=== PATIENT | male | born 1990 | race African-American/Black ===

== ENCOUNTER 2021-01-15 19:47 | Emergency (ER) | payer SELFPAY ==
[~2021-01-15] VITALS: Ht 190.5 cm; Wt 87.0 kg
[2021-01-15 20:41] VITALS: BP 146/81
[2021-01-15] MEDS ORDERED: ACETAMINOPHEN 325MG TABLET PO ONE (22:30)
[2021-01-15] MEDS ORDERED: TOPUD PO (22:51)
== END 2021-01-15 23:21 | disposition home or self-care (01) ==
LOC: ER 19:47
DX: S60.222A Contusion of left hand, initial encounter (principal); S60.221A Contusion of right hand, initial encounter; J45.909 Unspecified asthma, uncomplicated; M19.90 Unspecified osteoarthritis, unspecified site; G40.909 Epilepsy, unspecified, not intractable, without status epilepticus; Z88.0 Allergy status to penicillin; V00.131A Fall from skateboard, initial encounter; Y93.51 Activity, roller skating (inline) and skateboarding; Y92.488 Other paved roadways as the place of occurrence of the external cause; Y99.8 Other external cause status
CPT/HCPCS: 73130; 99283

== ENCOUNTER 2021-09-06 18:20 | Emergency (ER) | payer MEDICAID ==
[~2021-09-06] VITALS: Ht 188 cm; Wt 87.0 kg
[~2021-09-06 18:20] MED LIST: TOPUD PO
[2021-09-06 18:33] VITALS: BP 132/94
== END 2021-09-06 20:19 | disposition left against medical advice (07) ==
LOC: ER 18:20
DX: Z53.21 Procedure and treatment not carried out due to patient leaving prior to being seen by health care provider (principal)

== ENCOUNTER 2021-09-06 22:06 | Emergency (ER) | payer MEDICAID ==
[~2021-09-06] VITALS: Ht 188 cm; Wt 86.0 kg
[2021-09-06 23:41] VITALS: BP 146/91
== END 2021-09-07 01:10 | disposition left against medical advice (07) ==
LOC: ER 22:06
DX: Z53.21 Procedure and treatment not carried out due to patient leaving prior to being seen by health care provider (principal)

== ENCOUNTER 2021-09-25 13:25 | Emergency (ER) | payer MEDICAID ==
[~2021-09-25] VITALS: Ht 185.4 cm; Wt 77.0 kg
[2021-09-25] MEDS ORDERED: IBUPROFEN 800MG TABLET PO ONE (14:15)
[2021-09-25 15:03] VITALS: BP 126/75
== END 2021-09-25 15:30 | disposition home or self-care (01) ==
LOC: ER 13:25
DX: S80.212A Abrasion, left knee, initial encounter (principal); M79.601 Pain in right arm; M25.532 Pain in left wrist; V03.19XA Pedestrian with other conveyance injured in collision with car, pick-up truck or van in traffic accident, initial encounter; Y93.89 Activity, other specified; Y92.89 Other specified places as the place of occurrence of the external cause; Y99.8 Other external cause status; J45.909 Unspecified asthma, uncomplicated; Z88.0 Allergy status to penicillin
CPT/HCPCS: 71045; 73060; 73110; 73560; 99284

== ENCOUNTER 2021-11-16 09:27 | Emergency (ER) | payer MEDICAID ==
[~2021-11-16] VITALS: Ht 188 cm; Wt 86.0 kg
[2021-11-16] MEDS ORDERED: IBUPROFEN 600MG TABLET PO ONE (10:15)
[2021-11-16] MEDS ORDERED: NAPR-681 MT (12:16)
[2021-11-16] MEDS ORDERED: IBUPROFEN 600MG TABLET PO NR (12:30)
[2021-11-16 12:38] VITALS: BP 135/87
== END 2021-11-16 12:44 | disposition home or self-care (01) ==
LOC: ER 09:27
DX: M25.562 Pain in left knee (principal); M25.461 Effusion, right knee; Z87.828 Personal history of other (healed) physical injury and trauma
CPT/HCPCS: 29505; 73562; 99283

== ENCOUNTER 2021-11-24 12:25 | Emergency (ER) | payer MEDICAID ==
[~2021-11-24] VITALS: Ht 180.3 cm; Wt 73.0 kg
[~2021-11-24 12:25] MED LIST changes: +NAPR-681 MT
[2021-11-24] MEDS ORDERED: OLANZAPINE 10MG TABLET PO STA (12:38)
[2021-11-24 13:01] LABS: BASOPHILS % 1.4 % (0.0-2.0); EOSINOPHILS % 2.7 % (0.0-5.0); HEMATOCRIT. 37.7 % (42.0-52.0); HEMOGLOBIN. 12.8 g/dL (14.0-18.0); LYMPHOCYTES % 28.7 % (20.0-50.0); MEAN CORPUSCULAR HEMOGLOBIN 29.7 pg (28.0-32.0); MEAN CORPUSCULAR VOLUME 87.3 fL (80.0-94.0); MEAN PLATELET VOLUME 7.3 fl (7.4-10.4); MONOCYTES % 6.8 % (2.0-8.0); NEUTROPHILS % 60.4 % (40.0-76.0); PLATELET 293 x1000/uL (130-400); RED BLOOD CELL COUNT 4.32 mill/uL (4.7-6.1); RED CELL DISTRIBUTION WIDTH 15.4 % (11.6-14.6)
[2021-11-24 13:08] LABS: CHLORIDE 109 mEq/L (98-107)
[2021-11-24 13:15] LABS: ETHANOL BLOOD < 10 mg/dL
[2021-11-24 13:30] LABS: CLARITY URINE CLEAR (CLEAR); COLOR URINE YELLOW (YELLOW); KETONES URINE NEGATIVE (NEGATIVE); LEUKOCYTE ESTERASE URINE NEGATIVE (NEGATIVE); NITRITE URINE NEGATIVE (NEGATIVE); OCCULT BLOOD URINE NEGATIVE (NEGATIVE); PROTEIN URINE NEGATIVE (NEGATIVE); SPECIFIC GRAVITY URINE 1.022 (1.005-1.030)
[2021-11-24 14:03] LABS: *AMPHETAMINES SCREEN URINE PRESUMTIVE POSITIVE (NEGATIVE); *BARBITURATES SCREEN URINE NEGATIVE (NEGATIVE); *BENZODIAZEPINES SCREEN URINE NEGATIVE (NEGATIVE); *COCAINE SCREEN URINE NEGATIVE (NEGATIVE); CANNABINOID URINE SCREEN PRESUMTIVE POSITIVE (NEGATIVE); METHADONE URINE SCREEN NEGATIVE (NEGATIVE); OPIATES URINE SCREEN NEGATIVE (NEGATIVE); PHENCYCLIDINE URINE SCREEN NEGATIVE (NEGATIVE)
[2021-11-25] MEDS: RISPERIDONE 1MG TABLET PO SCH ×2 (09:55→21:59)
[2021-11-26 01:32] VITALS: BP 135/67
== END 2021-11-26 01:48 ==
LOC: ER 12:38
DX: T14.91XA Suicide attempt, initial encounter (principal); X83.8XXA Intentional self-harm by other specified means, initial encounter; F33.2 Major depressive disorder, recurrent severe without psychotic features; R44.0 Auditory hallucinations; Y93.89 Activity, other specified; Y92.488 Other paved roadways as the place of occurrence of the external cause; F15.10 Other stimulant abuse, uncomplicated; F12.10 Cannabis abuse, uncomplicated; Z20.822 Contact with and (suspected) exposure to COVID-19; R03.0 Elevated blood-pressure reading, without diagnosis of hypertension; D64.9 Anemia, unspecified; Z91.14 Patient's other noncompliance with medication regimen; J45.909 Unspecified asthma, uncomplicated; G40.909 Epilepsy, unspecified, not intractable, without status epilepticus; Z87.39 Personal history of other diseases of the musculoskeletal system and connective tissue
CPT/HCPCS: 36415; 80053; 80305; 80307; 80320; 80329; 81003; 85025; 99285; C9803; U0003; U0005; G0480

== ENCOUNTER 2022-01-28 08:41 | Emergency (ER) | payer MEDICAID ==
[~2022-01-28] VITALS: Ht 185.4 cm; Wt 90.0 kg
[2022-01-28] MEDS ORDERED: SERT100T PO (08:52)
[2022-01-28] MEDS ORDERED: OLAN15TA3 PO (08:52)
[2022-01-28 09:44] LABS: BASOPHILS % 0.5 % (0.0-2.0); EOSINOPHILS % 0.2 % (0.0-5.0); HEMATOCRIT. 41.4 % (42.0-52.0); HEMOGLOBIN. 13.8 g/dL (14.0-18.0); LYMPHOCYTES % 14.1 % (20.0-50.0); MEAN CORPUSCULAR HEMOGLOBIN 29.4 pg (28.0-32.0); MEAN CORPUSCULAR VOLUME 88.3 fL (80.0-94.0); MONOCYTES % 6.7 % (2.0-8.0); NEUTROPHILS % 78.5 % (40.0-76.0); PLATELET 283 x1000/uL (130-400); RED BLOOD CELL COUNT 4.69 mill/uL (4.7-6.1); RED CELL DISTRIBUTION WIDTH 14.3 % (11.6-14.6)
[2022-01-28 09:50] LABS: CHLORIDE 103 mEq/L (98-107)
[2022-01-28 09:57] LABS: ETHANOL BLOOD < 10 mg/dL
[2022-01-28 10:50] VITALS: BP 142/66
[2022-01-28 11:30] LABS: *AMPHETAMINES SCREEN URINE NEGATIVE (NEGATIVE); *BARBITURATES SCREEN URINE NEGATIVE (NEGATIVE); *BENZODIAZEPINES SCREEN URINE NEGATIVE (NEGATIVE); *COCAINE SCREEN URINE NEGATIVE (NEGATIVE); CANNABINOID URINE SCREEN PRESUMTIVE POSITIVE (NEGATIVE); METHADONE URINE SCREEN NEGATIVE (NEGATIVE); OPIATES URINE SCREEN NEGATIVE (NEGATIVE); PHENCYCLIDINE URINE SCREEN NEGATIVE (NEGATIVE)
== END 2022-01-28 11:04 | disposition home or self-care (01) ==
LOC: ER 09:02
DX: F20.9 Schizophrenia, unspecified (principal); F31.9 Bipolar disorder, unspecified; G40.909 Epilepsy, unspecified, not intractable, without status epilepticus; F90.9 Attention-deficit hyperactivity disorder, unspecified type; F12.10 Cannabis abuse, uncomplicated; M19.90 Unspecified osteoarthritis, unspecified site; J45.909 Unspecified asthma, uncomplicated; F17.210 Nicotine dependence, cigarettes, uncomplicated; Z71.6 Tobacco abuse counseling; Z88.0 Allergy status to penicillin
CPT/HCPCS: 36415; 80053; 80305; 80307; 80320; 80329; 85025; 99283; 99406; G0480

== ENCOUNTER 2022-03-07 00:33 | Emergency (ER) | payer MEDICAID ==
[~2022-03-07] VITALS: Ht 188 cm; Wt 85.9 kg
[~2022-03-07 00:33] MED LIST changes: +OLAN15TA3 PO; +SERT100T PO
[2022-03-07 00:42] VITALS: BP 172/105
== END 2022-03-07 05:02 | disposition left against medical advice (07) ==
LOC: ER 00:33
DX: Z53.21 Procedure and treatment not carried out due to patient leaving prior to being seen by health care provider (principal)

== ENCOUNTER 2022-03-07 18:48 | Emergency (ER) | payer MEDICAID | END 2022-03-07 19:07 | disposition left against medical advice (07) | LOC: ER 18:48 | DX: Z53.21 Procedure and treatment not carried out due to patient leaving prior to being seen by health care provider (principal) ==

== ENCOUNTER 2022-03-26 17:38 | Emergency (ER) | payer MEDICAID ==
[~2022-03-26] VITALS: Ht 188 cm; Wt 87.0 kg
[2022-03-26] MEDS ORDERED: ACETAMINOPHEN 325MG TABLET PO ONE (18:30)
[2022-03-26] MEDS ORDERED: IBUP-2029 MT (18:43)
[2022-03-26 19:00] VITALS: BP 143/94
== END 2022-03-26 19:01 | disposition home or self-care (01) ==
LOC: ER 17:38
DX: R51.9 Headache, unspecified (principal); R50.9 Fever, unspecified; J45.909 Unspecified asthma, uncomplicated; F31.9 Bipolar disorder, unspecified; F20.9 Schizophrenia, unspecified; F17.290 Nicotine dependence, other tobacco product, uncomplicated; F12.10 Cannabis abuse, uncomplicated; Z88.0 Allergy status to penicillin
CPT/HCPCS: 99282

== ENCOUNTER 2022-04-02 10:53 | Emergency (ER) | payer MEDICAID ==
[~2022-04-02] VITALS: Ht 190.5 cm; Wt 87.0 kg
[~2022-04-02 10:53] MED LIST changes: +IBUP-2029 MT
[2022-04-02 12:03] LABS: BASOPHILS % 0.5 % (0.0-2.0); HEMATOCRIT. 39.1 % (42.0-52.0); HEMOGLOBIN. 12.7 g/dL (14.0-18.0); LYMPHOCYTES % 28.1 % (20.0-50.0); MEAN CORPUSCULAR HEMOGLOBIN 28.7 pg (28.0-32.0); MEAN CORPUSCULAR VOLUME 88.2 fL (80.0-94.0); MEAN PLATELET VOLUME 7.5 fl (7.4-10.4); MONOCYTES % 6.4 % (2.0-8.0); PLATELET 235 x1000/uL (130-400); RED BLOOD CELL COUNT 4.43 mill/uL (4.7-6.1); RED CELL DISTRIBUTION WIDTH 14.8 % (11.6-14.6)
[2022-04-02 12:15] LABS: CHLORIDE 109 mEq/L (98-107)
[2022-04-02 12:22] LABS: ETHANOL BLOOD < 10 mg/dL
[2022-04-02 12:38] LABS: CLARITY URINE CLEAR (CLEAR); COLOR URINE YELLOW (YELLOW); KETONES URINE TRACE (NEGATIVE); LEUKOCYTE ESTERASE URINE NEGATIVE (NEGATIVE); NITRITE URINE NEGATIVE (NEGATIVE); OCCULT BLOOD URINE NEGATIVE (NEGATIVE); PH URINE 5.5 (4.5-8.0); PROTEIN URINE TRACE (NEGATIVE); SPECIFIC GRAVITY URINE 1.042 (1.005-1.030)
[2022-04-02 13:00] LABS: *AMPHETAMINES SCREEN URINE PRESUMTIVE POSITIVE (NEGATIVE); *BARBITURATES SCREEN URINE NEGATIVE (NEGATIVE); *BENZODIAZEPINES SCREEN URINE NEGATIVE (NEGATIVE); *COCAINE SCREEN URINE NEGATIVE (NEGATIVE); CANNABINOID URINE SCREEN PRESUMTIVE POSITIVE (NEGATIVE); METHADONE URINE SCREEN NEGATIVE (NEGATIVE); OPIATES URINE SCREEN NEGATIVE (NEGATIVE); PHENCYCLIDINE URINE SCREEN NEGATIVE (NEGATIVE)
[2022-04-03] MEDS ORDERED: OLANZAPINE 10 MG/VIAL IM ONE (09:45)
[2022-04-03] MEDS ORDERED: MIDAZOLAM HCL 2 MG/2 ML VIAL IM ONE (09:45)
[2022-04-03] MEDS: OLANZAPINE 5MG TABLET PO SCH ×2 (11:30→17:00)
[2022-04-03] MEDS: SERTRALINE HCL 50MG TABLET PO SCH (11:30)
[2022-04-04] MEDS: OLANZAPINE 5MG TABLET PO SCH (09:11)
[2022-04-04] MEDS: SERTRALINE HCL 50MG TABLET PO SCH (09:12)
[2022-04-04 13:11] VITALS: BP 146/82
== END 2022-04-04 13:26 | disposition short-term general hospital (02) ==
LOC: ER 11:51
DX: R45.851 Suicidal ideations (principal); F19.10 Other psychoactive substance abuse, uncomplicated; J45.909 Unspecified asthma, uncomplicated; F31.9 Bipolar disorder, unspecified; F20.9 Schizophrenia, unspecified; F12.10 Cannabis abuse, uncomplicated; Z79.899 Other long term (current) drug therapy; Z88.0 Allergy status to penicillin; Z20.822 Contact with and (suspected) exposure to COVID-19
CPT/HCPCS: 36415; 80053; 80305; 80320; 81003; 85025; 96372; 99285; C9803; U0003; U0005; G0480

== ENCOUNTER 2022-04-07 18:16 | Emergency (ER) | payer MEDICAID ==
[~2022-04-07] VITALS: Ht 182.9 cm; Wt 82.0 kg
[2022-04-07] MEDS ORDERED: OLANZAPINE 5MG TABLET PO SCH (23:15)
[2022-04-07 23:54] LABS: BASOPHILS % 0.7 % (0.0-2.0); EOSINOPHILS % 0.7 % (0.0-5.0); HEMATOCRIT. 40.6 % (42.0-52.0); HEMOGLOBIN. 13.4 g/dL (14.0-18.0); LYMPHOCYTES % 24.3 % (20.0-50.0); MEAN CORPUSCULAR HEMOGLOBIN 28.6 pg (28.0-32.0); MEAN CORPUSCULAR VOLUME 86.6 fL (80.0-94.0); MEAN PLATELET VOLUME 7.1 fl (7.4-10.4); MONOCYTES % 9.1 % (2.0-8.0); NEUTROPHILS % 65.2 % (40.0-76.0); PLATELET 351 x1000/uL (130-400); RED BLOOD CELL COUNT 4.69 mill/uL (4.7-6.1); RED CELL DISTRIBUTION WIDTH 15.6 % (11.6-14.6)
[2022-04-08 00:01] LABS: CHLORIDE 99 mEq/L (98-107)
[2022-04-08 00:10] LABS: ETHANOL BLOOD < 10 mg/dL
[2022-04-08 08:14] LABS: CLARITY URINE CLEAR (CLEAR); COLOR URINE YELLOW (YELLOW); KETONES URINE NEGATIVE (NEGATIVE); LEUKOCYTE ESTERASE URINE NEGATIVE (NEGATIVE); NITRITE URINE NEGATIVE (NEGATIVE); OCCULT BLOOD URINE NEGATIVE (NEGATIVE); PH URINE 7.5 (4.5-8.0); PROTEIN URINE NEGATIVE (NEGATIVE); SPECIFIC GRAVITY URINE 1.026 (1.005-1.030)
[2022-04-08 08:31] LABS: *AMPHETAMINES SCREEN URINE PRESUMTIVE POSITIVE (NEGATIVE); *BARBITURATES SCREEN URINE NEGATIVE (NEGATIVE); *BENZODIAZEPINES SCREEN URINE NEGATIVE (NEGATIVE); *COCAINE SCREEN URINE NEGATIVE (NEGATIVE); CANNABINOID URINE SCREEN PRESUMTIVE POSITIVE (NEGATIVE); METHADONE URINE SCREEN NEGATIVE (NEGATIVE); OPIATES URINE SCREEN NEGATIVE (NEGATIVE); PHENCYCLIDINE URINE SCREEN NEGATIVE (NEGATIVE)
[2022-04-08 08:40] VITALS: BP 156/86
== END 2022-04-08 10:20 | disposition home or self-care (01) ==
LOC: ER 18:16
DX: T43.621A Poisoning by amphetamines, accidental (unintentional), initial encounter (principal); F32.A Depression, unspecified; F20.9 Schizophrenia, unspecified; M19.90 Unspecified osteoarthritis, unspecified site; G40.909 Epilepsy, unspecified, not intractable, without status epilepticus; F12.10 Cannabis abuse, uncomplicated; R45.851 Suicidal ideations; Z59.00 Homelessness unspecified; Z88.0 Allergy status to penicillin; Z20.822 Contact with and (suspected) exposure to COVID-19; Y92.488 Other paved roadways as the place of occurrence of the external cause
CPT/HCPCS: 36415; 80053; 80305; 80307; 80320; 80329; 81003; 85025; 99285; C9803; U0003; U0005; G0480

== ENCOUNTER 2022-04-09 17:56 | Emergency (ER) | payer MEDICAID ==
[~2022-04-09] VITALS: Ht 190.5 cm; Wt 87.0 kg
[2022-04-09 18:12] VITALS: BP 138/91
== END 2022-04-09 23:50 | disposition left against medical advice (07) ==
LOC: ER 17:56
DX: Z53.21 Procedure and treatment not carried out due to patient leaving prior to being seen by health care provider (principal)

== ENCOUNTER 2022-05-21 06:35 | Emergency (ER) | payer MEDICAID ==
[~2022-05-21] VITALS: Ht 182.9 cm; Wt 77.0 kg
[2022-05-21 13:10] LABS: CHLORIDE 103 mEq/L (98-107)
[2022-05-21 13:15] LABS: BASOPHILS % 0.5 % (0.0-2.0); EOSINOPHILS % 2.3 % (0.0-5.0); HEMATOCRIT. 38.1 % (42.0-52.0); HEMOGLOBIN. 12.9 g/dL (14.0-18.0); LYMPHOCYTES % 26.4 % (20.0-50.0); MEAN CORPUSCULAR HEMOGLOBIN 29.6 pg (28.0-32.0); MEAN CORPUSCULAR VOLUME 87.1 fL (80.0-94.0); MEAN PLATELET VOLUME 7.4 fl (7.4-10.4); MONOCYTES % 9.5 % (2.0-8.0); NEUTROPHILS % 61.3 % (40.0-76.0); PLATELET 361 x1000/uL (130-400); RED BLOOD CELL COUNT 4.37 mill/uL (4.7-6.1); RED CELL DISTRIBUTION WIDTH 15.3 % (11.6-14.6)
[2022-05-21 13:19] LABS: ETHANOL BLOOD < 10 mg/dL
[2022-05-21 15:10] LABS: CLARITY URINE CLOUDY (CLEAR); COLOR URINE YELLOW (YELLOW); KETONES URINE TRACE (NEGATIVE); LEUKOCYTE ESTERASE URINE NEGATIVE (NEGATIVE); NITRITE URINE NEGATIVE (NEGATIVE); OCCULT BLOOD URINE NEGATIVE (NEGATIVE); PH URINE 6.5 (4.5-8.0); PROTEIN URINE TRACE (NEGATIVE); UROBILINOGEN URINE 0.2 E.U./dL (0.2-1.0)
[2022-05-21 15:21] LABS: *AMPHETAMINES SCREEN URINE PRESUMTIVE POSITIVE (NEGATIVE); *BARBITURATES SCREEN URINE NEGATIVE (NEGATIVE); *BENZODIAZEPINES SCREEN URINE NEGATIVE (NEGATIVE); *COCAINE SCREEN URINE NEGATIVE (NEGATIVE); CANNABINOID URINE SCREEN PRESUMTIVE POSITIVE (NEGATIVE); METHADONE URINE SCREEN NEGATIVE (NEGATIVE); OPIATES URINE SCREEN NEGATIVE (NEGATIVE); PHENCYCLIDINE URINE SCREEN NEGATIVE (NEGATIVE)
[2022-05-21 15:30] VITALS: BP 166/84
== END 2022-05-21 19:02 | disposition left against medical advice (07) ==
LOC: ER 06:43
DX: R44.3 Hallucinations, unspecified (principal); J45.909 Unspecified asthma, uncomplicated; F31.9 Bipolar disorder, unspecified; F17.290 Nicotine dependence, other tobacco product, uncomplicated; F12.10 Cannabis abuse, uncomplicated; Z88.0 Allergy status to penicillin
CPT/HCPCS: 36415; 80053; 80305; 80307; 80320; 80329; 81003; 85025; 99283; G0480

== ENCOUNTER 2023-01-05 10:25 | Emergency (ER) | payer MEDICAID ==
[~2023-01-05] VITALS: Ht 190.5 cm; Wt 86.0 kg
[2023-01-05 10:28] VITALS: BP 170/111
== END 2023-01-05 12:02 | disposition home or self-care (01) ==
LOC: ER 10:25
DX: R45.851 Suicidal ideations (principal); F15.10 Other stimulant abuse, uncomplicated; J45.909 Unspecified asthma, uncomplicated; Z88.0 Allergy status to penicillin; Z86.59 Personal history of other mental and behavioral disorders
CPT/HCPCS: 99281

== ENCOUNTER 2023-01-10 07:28 | Emergency (ER) | payer MEDICAID ==
[~2023-01-10] VITALS: Ht 188 cm; Wt 100.0 kg
[2023-01-10 07:35] VITALS: BP 151/105
== END 2023-01-10 12:13 | disposition left against medical advice (07) ==
LOC: ER 07:28
DX: R45.851 Suicidal ideations (principal); J45.909 Unspecified asthma, uncomplicated; Z88.0 Allergy status to penicillin; Z86.59 Personal history of other mental and behavioral disorders; Z00.00 Encounter for general adult medical examination without abnormal findings
CPT/HCPCS: 99281

== ENCOUNTER 2023-01-10 15:23 | Emergency (ER) | payer MEDICAID ==
[~2023-01-10] VITALS: Ht 188 cm; Wt 100.0 kg
[2023-01-10 16:26] LABS: BASOPHILS % 0.7 % (0.0-2.0); EOSINOPHILS % 2.4 % (0.0-5.0); HEMATOCRIT. 39.3 % (42.0-52.0); HEMOGLOBIN. 13.2 g/dL (14.0-18.0); LYMPHOCYTES % 35.9 % (20.0-50.0); MEAN CORPUSCULAR HEMOGLOBIN 28.3 pg (28.0-32.0); MEAN CORPUSCULAR VOLUME 84.1 fL (80.0-94.0); MEAN PLATELET VOLUME 7.8 fl (7.4-10.4); MONOCYTES % 9.3 % (2.0-8.0); NEUTROPHILS % 51.7 % (40.0-76.0); PLATELET 268 x1000/uL (130-400); RED BLOOD CELL COUNT 4.67 mill/uL (4.7-6.1); RED CELL DISTRIBUTION WIDTH 14.7 % (11.6-14.6)
[2023-01-10 16:31] LABS: CHLORIDE 108 mEq/L (98-107)
[2023-01-10 16:40] LABS: ETHANOL BLOOD < 10 mg/dL (-10)
[2023-01-10 19:01] LABS: CLARITY URINE CLEAR (CLEAR); COLOR URINE YELLOW (YELLOW); KETONES URINE NEGATIVE (NEGATIVE); LEUKOCYTE ESTERASE URINE NEGATIVE (NEGATIVE); NITRITE URINE NEGATIVE (NEGATIVE); OCCULT BLOOD URINE NEGATIVE (NEGATIVE); PROTEIN URINE TRACE (NEGATIVE); SPECIFIC GRAVITY URINE 1.035 (1.005-1.030)
[2023-01-10 19:11] LABS: *AMPHETAMINES SCREEN URINE PRESUMTIVE POSITIVE (NEGATIVE); *BARBITURATES SCREEN URINE NEGATIVE (NEGATIVE); *BENZODIAZEPINES SCREEN URINE NEGATIVE (NEGATIVE); *COCAINE SCREEN URINE NEGATIVE (NEGATIVE); CANNABINOID URINE SCREEN NEGATIVE (NEGATIVE); METHADONE URINE SCREEN NEGATIVE (NEGATIVE); OPIATES URINE SCREEN NEGATIVE (NEGATIVE); PHENCYCLIDINE URINE SCREEN NEGATIVE (NEGATIVE)
[2023-01-11] MEDS: QUETIAPINE FUMARATE 50MG TABLET PO SCH ×2 (11:00→21:00)
[2023-01-12] MEDS: QUETIAPINE FUMARATE 50MG TABLET PO SCH (09:00)
[2023-01-12] MEDS ORDERED: DIVALPROEX SODIUM 250MG DR TABLET PO ONE (14:30)
[2023-01-12 18:44] VITALS: BP 142/87
== END 2023-01-12 19:35 ==
LOC: ER 15:23
DX: R45.851 Suicidal ideations (principal); J45.909 Unspecified asthma, uncomplicated; F31.9 Bipolar disorder, unspecified; F20.9 Schizophrenia, unspecified; F15.10 Other stimulant abuse, uncomplicated; Z20.822 Contact with and (suspected) exposure to COVID-19
CPT/HCPCS: 36415; 80053; 80165; 80305; 80307; 80320; 80329; 81003; 85025; 87426; 99285; C9803; Z7610; G0480

== ENCOUNTER 2023-01-25 07:15 | Emergency (ER) | payer MEDICAID ==
[~2023-01-25] VITALS: Ht 182.9 cm; Wt 87.0 kg
[2023-01-25 07:23] VITALS: O2SAT 99
[2023-01-25 10:40] VITALS: BP 132/88; PULSE 99; RESP 20; TEMP 98.4
== END 2023-01-25 11:01 | disposition home or self-care (01) ==
LOC: ER 07:15
DX: Z00.00 Encounter for general adult medical examination without abnormal findings (principal)
CPT/HCPCS: 99281

== ENCOUNTER 2023-01-30 15:15 | Emergency (ER) | payer MEDICAID ==
[~2023-01-30] VITALS: Ht 188 cm; Wt 80.0 kg
[2023-01-30 15:18] VITALS: O2SAT 100
[2023-01-30 16:40] LABS: BASOPHILS % 0.7 % (0.0-2.0); EOSINOPHILS % 0.2 % (0.0-5.0); HEMATOCRIT. 40.1 % (42.0-52.0); HEMOGLOBIN. 13.7 g/dL (14.0-18.0); LYMPHOCYTES % 21.9 % (20.0-50.0); MEAN CORPUSCULAR HEMOGLOBIN 28.6 pg (28.0-32.0); MEAN PLATELET VOLUME 8.1 fl (7.4-10.4); MONOCYTES % 7.7 % (2.0-8.0); NEUTROPHILS % 69.5 % (40.0-76.0); PLATELET 336 x1000/uL (130-400); RED BLOOD CELL COUNT 4.78 mill/uL (4.7-6.1); RED CELL DISTRIBUTION WIDTH 14.5 % (11.6-14.6)
[2023-01-30 16:43] LABS: CHLORIDE 107 mEq/L (98-107)
[2023-01-30 16:52] LABS: ETHANOL BLOOD < 10 mg/dL (-10)
[2023-01-30 19:55] LABS: CLARITY URINE CLEAR (CLEAR); COLOR URINE YELLOW (YELLOW); KETONES URINE NEGATIVE (NEGATIVE); LEUKOCYTE ESTERASE URINE NEGATIVE (NEGATIVE); NITRITE URINE NEGATIVE (NEGATIVE); OCCULT BLOOD URINE NEGATIVE (NEGATIVE); PROTEIN URINE NEGATIVE (NEGATIVE); SPECIFIC GRAVITY URINE 1.032 (1.005-1.030)
[2023-01-30 20:05] LABS: *AMPHETAMINES SCREEN URINE PRESUMTIVE POSITIVE (NEGATIVE); *BARBITURATES SCREEN URINE NEGATIVE (NEGATIVE); *BENZODIAZEPINES SCREEN URINE NEGATIVE (NEGATIVE); *COCAINE SCREEN URINE NEGATIVE (NEGATIVE); CANNABINOID URINE SCREEN NEGATIVE (NEGATIVE); METHADONE URINE SCREEN NEGATIVE (NEGATIVE); OPIATES URINE SCREEN NEGATIVE (NEGATIVE); PHENCYCLIDINE URINE SCREEN NEGATIVE (NEGATIVE)
[2023-01-31 10:34] VITALS: BP 120/69; PULSE 98; RESP 16; TEMP 98.2
== END 2023-01-31 10:37 | disposition home or self-care (01) ==
LOC: ER 15:41
DX: R45.851 Suicidal ideations (principal); J45.909 Unspecified asthma, uncomplicated; Z88.0 Allergy status to penicillin; Z00.00 Encounter for general adult medical examination without abnormal findings; Z86.59 Personal history of other mental and behavioral disorders
CPT/HCPCS: 36415; 80053; 80305; 80307; 80320; 80329; 81003; 85025; 99285; G0480

== ENCOUNTER 2023-02-03 20:34 | Emergency (ER) | payer MEDICAID ==
[~2023-02-03] VITALS: Ht 190.5 cm; Wt 86.5 kg
[2023-02-03 21:35] VITALS: O2SAT 98
[2023-02-03] MEDS ORDERED: LORAZEPAM 1MG TABLET PO ONE (22:00)
[2023-02-03] MEDS ORDERED: OLANZAPINE 10MG TABLET PO STA (22:13)
[2023-02-03] MEDS ORDERED: OLANZAPINE 10MG TABLET PO NR (22:30)
[2023-02-03] MEDS ORDERED: LORAZEPAM 1MG TABLET PO NR (22:30)
[2023-02-03 22:44] LABS: CLARITY URINE CLEAR (CLEAR); COLOR URINE DARK YELLOW (YELLOW); KETONES URINE TRACE (NEGATIVE); LEUKOCYTE ESTERASE URINE NEGATIVE (NEGATIVE); NITRITE URINE NEGATIVE (NEGATIVE); OCCULT BLOOD URINE NEGATIVE (NEGATIVE); PH URINE 5.5 (4.5-8.0); PROTEIN URINE TRACE (NEGATIVE); SPECIFIC GRAVITY URINE 1.039 (1.005-1.030)
[2023-02-03 23:01] LABS: *AMPHETAMINES SCREEN URINE PRESUMTIVE POSITIVE (NEGATIVE); *BARBITURATES SCREEN URINE NEGATIVE (NEGATIVE); *BENZODIAZEPINES SCREEN URINE NEGATIVE (NEGATIVE); *COCAINE SCREEN URINE NEGATIVE (NEGATIVE); METHADONE URINE SCREEN NEGATIVE (NEGATIVE); OPIATES URINE SCREEN NEGATIVE (NEGATIVE)
[2023-02-03 23:02] LABS: CANNABINOID URINE SCREEN NEGATIVE (NEGATIVE); PHENCYCLIDINE URINE SCREEN NEGATIVE (NEGATIVE)
[2023-02-03 23:20] LABS: BASOPHILS % 0.5 % (0.0-2.0); EOSINOPHILS % 0.9 % (0.0-5.0); HEMATOCRIT. 38.7 % (42.0-52.0); HEMOGLOBIN. 13.2 g/dL (14.0-18.0); LYMPHOCYTES % 28.9 % (20.0-50.0); MEAN CORPUSCULAR HEMOGLOBIN 28.3 pg (28.0-32.0); MEAN CORPUSCULAR VOLUME 83.3 fL (80.0-94.0); MEAN PLATELET VOLUME 7.5 fl (7.4-10.4); MONOCYTES % 9.6 % (2.0-8.0); NEUTROPHILS % 60.1 % (40.0-76.0); PLATELET 278 x1000/uL (130-400); RED BLOOD CELL COUNT 4.65 mill/uL (4.7-6.1); RED CELL DISTRIBUTION WIDTH 14.3 % (11.6-14.6)
[2023-02-03 23:26] LABS: CHLORIDE 108 mEq/L (98-107)
[2023-02-03 23:34] LABS: ETHANOL BLOOD < 10 mg/dL (-10)
[2023-02-03] MEDS ORDERED: OLANZAPINE 10 MG/VIAL IM ONE (23:45)
[2023-02-03] MEDS ORDERED: ONDANSETRON 4MG ODT PO ONE (23:45)
[2023-02-04 05:08] VITALS: BP 150/87; PULSE 89; RESP 16; TEMP 98.3
[2023-02-04] MEDS ORDERED: OLANZAPINE 10MG TABLET PO SCH (10:00)
[2023-02-04] MEDS ORDERED: SERTRALINE HCL 50MG TABLET PO SCH (10:00)
== END 2023-02-04 11:19 | disposition home or self-care (01) ==
LOC: ER 21:08
DX: R45.851 Suicidal ideations (principal); F19.10 Other psychoactive substance abuse, uncomplicated; J45.909 Unspecified asthma, uncomplicated; F31.9 Bipolar disorder, unspecified; F20.9 Schizophrenia, unspecified; Z88.0 Allergy status to penicillin; Z20.822 Contact with and (suspected) exposure to COVID-19
CPT/HCPCS: 80053; 80305; 81003; 80307; 80329; 80320; 85025; 36415; 99285; 87426; C9803; G0480

== ENCOUNTER 2023-02-10 10:22 | Emergency (ER) | payer MEDICAID ==
[~2023-02-10] VITALS: Ht 185.4 cm; Wt 86.0 kg
[2023-02-10 10:34] VITALS: BP 124/74; PULSE 93; RESP 16; TEMP 98.3; O2SAT 100
[2023-02-10 12:37] LABS: BASOPHILS % 0.6 % (0.0-2.0); EOSINOPHILS % 3.6 % (0.0-5.0); HEMOGLOBIN. 12.9 g/dL (14.0-18.0); LYMPHOCYTES % 42.2 % (20.0-50.0); MEAN CORPUSCULAR HEMOGLOBIN 28.6 pg (28.0-32.0); MEAN CORPUSCULAR VOLUME 83.7 fL (80.0-94.0); MEAN PLATELET VOLUME 7.6 fl (7.4-10.4); MONOCYTES % 10.3 % (2.0-8.0); NEUTROPHILS % 43.3 % (40.0-76.0); PLATELET 221 x1000/uL (130-400); RED BLOOD CELL COUNT 4.53 mill/uL (4.7-6.1); RED CELL DISTRIBUTION WIDTH 14.5 % (11.6-14.6)
[2023-02-10 12:39] LABS: CHLORIDE 106 mEq/L (98-107)
[2023-02-10 12:45] LABS: ETHANOL BLOOD < 10 mg/dL (-10)
== END 2023-02-10 14:05 | disposition home or self-care (01) ==
LOC: ER 10:22
DX: R45.851 Suicidal ideations (principal); I10 Essential (primary) hypertension; J45.909 Unspecified asthma, uncomplicated; Z76.5 Malingerer [conscious simulation]; Z86.59 Personal history of other mental and behavioral disorders
CPT/HCPCS: 36415; 80048; 80307; 80320; 80329; 85025; 99283; G0480

== ENCOUNTER 2023-03-17 22:51 | Emergency (ER) | payer MEDICAID ==
[~2023-03-17] VITALS: Ht 185.4 cm; Wt 99.0 kg
[2023-03-17 22:54] VITALS: BP 167/101; RESP 18; TEMP 98.7; O2SAT 100
[2023-03-17 22:55] VITALS: PULSE 121
[2023-03-17 23:42] LABS: BASOPHILS % 0.5 % (0.0-2.0); HEMATOCRIT. 36.9 % (42.0-52.0); HEMOGLOBIN. 12.2 g/dL (14.0-18.0); MEAN CORPUSCULAR HEMOGLOBIN 28.2 pg (28.0-32.0); MEAN CORPUSCULAR HGB CONC 33.1 g/dL (31.0-37.0); MEAN CORPUSCULAR VOLUME 85.2 fL (80.0-94.0); MEAN PLATELET VOLUME 7.7 fl (7.4-10.4); MONOCYTES % 7.7 % (2.0-8.0); NEUTROPHILS % 63.8 % (40.0-76.0); PLATELET 314 x1000/uL (130-400); RED BLOOD CELL COUNT 4.33 mill/uL (4.7-6.1); RED CELL DISTRIBUTION WIDTH 15.1 % (11.6-14.6); WHITE BLOOD COUNT 7.4 x1000/uL (4.5-11.0)
[2023-03-17 23:50] LABS: CHLORIDE 108 mEq/L (98-107); INDEX HEMOLYSI 1 (1-3); INDEX ICTERIC 1 (1-4); INDEX LIPEMIC 1 (1-3); POTASSIUM 3.1 mEq/L (3.5-5.1); SODIUM 138 mEq/L (136-145)
[2023-03-17 23:57] LABS: ACETAMINOPHEN < 2 ug/mL (10-30); ALANINE AMINOTRANSFERASE 24 IU/L (13-61); ALBUMIN 3.6 g/dL (3.4-5.0); ASPARTATE AMINOTRANSFERASE 15 IU/L (15-37); BILIRUBIN TOTAL 0.6 mg/dL (0.1-1.0); CALCIUM 8.4 mg/dL (8.5-10.1); CARBON DIOXIDE 27 mEq/L (21-32); ETHANOL BLOOD < 10 mg/dL (-10); GLUCOSE 85 mg/dL (70-105); PROTEIN TOTAL 6.9 g/dL (6.0-8.3); UREA NITROGEN BLOOD 8 mg/dL (7-21)
[2023-03-18 02:08] LABS: CLARITY URINE CLOUDY (CLEAR); COLOR URINE YELLOW (YELLOW); GLUCOSE URINE NEGATIVE (NEGATIVE); KETONES URINE 1+ (NEGATIVE); LEUKOCYTE ESTERASE URINE 2+ (NEGATIVE); NITRITE URINE NEGATIVE (NEGATIVE); OCCULT BLOOD URINE NEGATIVE (NEGATIVE); PROTEIN URINE TRACE (NEGATIVE); SPECIFIC GRAVITY URINE 1.027 (1.005-1.030)
[2023-03-18 02:22] LABS: *AMPHETAMINES SCREEN URINE PRESUMTIVE POSITIVE (NEGATIVE); *BARBITURATES SCREEN URINE NEGATIVE (NEGATIVE); *BENZODIAZEPINES SCREEN URINE NEGATIVE (NEGATIVE); *COCAINE SCREEN URINE NEGATIVE (NEGATIVE); CANNABINOID URINE SCREEN NEGATIVE (NEGATIVE); ECSTASY MDMA SCREEN URINE CONF.TEST INDICATED (NEGATIVE); METHADONE URINE SCREEN NEGATIVE (NEGATIVE); OPIATES URINE SCREEN NEGATIVE (NEGATIVE); PHENCYCLIDINE URINE SCREEN NEGATIVE (NEGATIVE)
[2023-03-18 02:33] LABS: BACTERIA URINE 1+; RBC URINE 0-2 /hpf (0-2); SQUAMOUS EPITHELIAL CELL URINE FEW /lpf (RARE/1+)
== END 2023-03-18 03:20 | disposition home or self-care (01) ==
LOC: ER 03-18 02:59
DX: F15.10 Other stimulant abuse, uncomplicated (principal); R45.851 Suicidal ideations; F32.9 Major depressive disorder, single episode, unspecified; J45.909 Unspecified asthma, uncomplicated; F20.9 Schizophrenia, unspecified; Z88.0 Allergy status to penicillin
CPT/HCPCS: 36415; 80053; 80305; 80307; 80320; 80329; 81003; 85025; 99283; G0480